=== PATIENT | male | born 1990 ===

== ENCOUNTER 2018-06-14 10:31 | Outpatient (CLI) | payer OTHER ==
--- NOTE | 2018-06-15 12:10 | Diagnostic Imaging Report ---
Indication: Unexplained hypertension resistant to medication Technique: Grayscale and duplex images of the kidneys, retroperitoneum, and bladder were obtained. Doppler interrogation of the main renal arteries and intrarenal arteries Comparison: none Findings: Right kidney measures 10.11 cm in length. Left kidney measures 9.9 cm in length. Both kidneys demonstrate normal echogenicity. No hydronephrosis. No focal abnormality. Normal inferior vena cava. Bladder is normal. Doppler interrogation of the right kidney demonstrates systolic velocity in the right renal artery of 126 cm/s and resistive index of 0.58. Much lower distal velocities are noted, ranging from 36 to 52 cm/s, resistive indices ranging between 4.8 and 5.3, possible slight parvus tardus waveform with low distal resistance Doppler interrogation of the left kidney demonstrates peak systolic velocity in the mid main renal artery of 110 cm/s with a resistive index of 0.81 proximally distal flow velocities are lower, ranging from 36 to 71, with resistive indices ranging from 0.4 to 0.62, equivocal parvus tardus low resistance waveforms. Impression: Equivocal evidence of bilateral proximal renal artery stenosis. Mildly elevated central renal artery flow velocities are demonstrated bilaterally, but do not quite meet criteria for greater than 50% diameter stenosis. Nonetheless, distal slower flow and waveforms raise concern of possible central renal artery stenosis. Consider CT angiography for better characterization Normal kidneys bilaterally, no evidence of hydronephrosis. Findings discussed by phone with Dr. [email or web address] at the time of interpretation.
== END 2018-06-14 12:31 | disposition home or self-care (01) ==
LOC: ULS 10:31
DX: I10 Essential (primary) hypertension (principal); I70.1 Atherosclerosis of renal artery
CPT/HCPCS: 76770

== ENCOUNTER 2018-06-18 10:15 | Outpatient (CLI) | payer OTHER ==
[2018-06-18 10:37] LABS: BLOOD UREA NITROGEN 14 mg/dL (7-18); CREATININE 0.8 MG/DL (0.55-1.30)
--- NOTE | 2018-06-18 15:53 | Diagnostic Imaging Report ---
Indication: Unexplained hypertension, suspected renal artery stenosis on recent sonogram Technique: IV administration nonionic contrast. Arterial phase spiral acquisitions obtained through the abdomen Multiplanar and 3-D reconstructions were generated. Total dose length product 773 mGycm. CTDIvol(s) 8, 56, 13 mGy. Radiation dose was minimized using automated exposure control Comparison: none Findings: Normal caliber abdominal aorta, no evidence of significant atherosclerotic plaquing demonstrated. The main renal arteries bilaterally are patent, nonstenotic, no evidence of significant mural plaquing demonstrated. Proximal branches are also patent and nonstenotic. There is an accessory tiny right renal artery as well, which appears to be patent and nonstenotic. Patent nonstenotic celiac axis and proximal branches, demonstrating normal branching anatomy. Patent nonstenotic superior mesenteric artery and proximal branches. Patent nonstenotic inferior mesenteric artery. The common, external, and internal iliac arteries are patent, without significant stenosis demonstrated. The renal parenchyma appears unremarkable, no focal abnormality. The adrenals are unremarkable. The liver, gallbladder, bile ducts, pancreas, spleen are all unremarkable. No retroperitoneal or mesenteric mass or adenopathy. No pelvic mass or adenopathy. The seminal vesicles are somewhat prominent but symmetric bilaterally. The bladder is unremarkable. There are scattered colonic diverticula demonstrated. No evidence of diverticulitis. The appendix is normal. No small bowel distention. No free or loculated intraperitoneal gas or fluid is evident. Included lung bases are clear. The heart is border line enlarged The bones are unremarkable. Impression: Normal renal arteries bilaterally, negative for evidence of renal artery stenosis. No other findings to explain stated clinical history of unexplained hypertension. No evidence of adrenal mass. Borderline cardiomegaly Colonic diverticulosis The CT scanner at [facility] is accredited by the [employer] and the scans are performed using protocols designed to limit radiation exposure to as low as reasonably achievable to attain images of sufficient resolution adequate for diagnostic evaluation.
== END 2018-06-18 12:15 | disposition home or self-care (01) ==
LOC: CAT 10:15
DX: I10 Essential (primary) hypertension (principal); I51.7 Cardiomegaly; K57.30 Diverticulosis of large intestine without perforation or abscess without bleeding
CPT/HCPCS: 36415; 74174; 82565; 84520; Q9967